=== PATIENT | female | born 1980 | race Two or more races ===

== ENCOUNTER 2025-07-27 22:48 | Inpatient (IN) | payer MEDICAID, OTHER ==
[~2025-07-27] VITALS: Ht 160 cm; Wt 114.7 kg
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
[2025-07-28 01:11] LABS: Alanine Aminotransferase 26 U/L (7-40); Albumin 4.2 g/dL (3.2-4.8); Alkaline Phosphatase 76 U/L (46-116); Anion Gap 9 (5-15); BUN/Creatinine Ratio 17.5 (10.0-20.0); Bilirubin, Total 0.6 mg/dL (0.2-1.0); Blood Urea Nitrogen 11 mg/dL (9-23); Calcium 8.8 mg/dL (8.7-10.4); Carbon Dioxide 24 mmol/L (20-31); Lipase 29 U/L (12-53); Potassium 4.0 mmol/L (3.5-5.1); Sodium 140 mmol/L (136-145); Total Protein 7.1 g/dL (5.7-8.2)
[2025-07-28 01:14] LABS: Hematocrit 40.4 % (36.0-46.0); Hemoglobin 13.4 g/dL (12.2-16.2); Mean Corpuscular Hemoglobin 28.4 pg (28.0-32.0); Mean Corpuscular Volume 85.5 fL (80.0-100.0); Nucleated Red Blood Cells % 0.1 %
[2025-07-28 01:15] LABS: Chloride 107 mmol/L (98-107); Glucose 111 mg/dL (74-106)
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
[2025-07-28] MEDS: ONDANSETRON HCL 4 MG/2 ML VIAL IV ONE (02:13)
[2025-07-28] MEDS: PIPERACILLIN-TAZOB 3.375GM 100 ML IV ONE (02:13)
[2025-07-28] MEDS: SODIUM CHLORIDE 0.9% 1,000 ML IV ONE (02:14)
[2025-07-28] MEDS: fentaNYL CITRATE 100 MCG/2 ML VL IV ONE ×2 (02:15→04:08)
[2025-07-28 02:42] LABS: Urine Protein, UAD Negative (Negative)
[2025-07-28] MEDS: IOHEXOL 300 MG/ML 100ML BOTTLE IJ ONE (02:46)
[2025-07-28 02:58] LABS: Amphetamine Screen, Urine Neg (NEGATIVE); Barbiturate Scree,Urine Neg (NEGATIVE); Benzodiazephine Screen, Urine Neg (NEGATIVE); Cannabinoid Screen, Urine Neg (NEGATIVE); Cocaine Screen, Urine Neg (NEGATIVE); Opiate Scree,Urine Neg (NEGATIVE); Phencyclidine Screen, Urine Neg (NEGATIVE)
--- NOTE | 2025-07-28 03:26 | DVH ---
Exam: CT CT AB PEL WITH IV CON ONLY History: abd pain Comparison Study: Same day CT abdomen/pelvis at 12:26 a.m. Technique: Multidetector spiral CT of the abdomen was performed from lung bases to pubic symphysis. Imaging was performed without IV contrast. Axial, coronal and sagittal multiplanar reformats were obtained from the axial data set by the technologist. Radiation Dose : 1. Abdomen/Pelvis: CTDIvol 26 mGy, DLP 1542 mGy*cm. Findings: See below. IMPRESSION: 1. No new finding, further characterization of previous finding, or significant interval change from 2.4 hours prior. Inflammation associated with a herniated loop of proximal transverse colon within a right-sided spigelian hernia, without associated bowel obstruction. 2. See recent comparison report for other chronic and incidental findings. Radiation optimization: All CT scans at this facility use at least one of these dose optimization techniques: automated exposure control mA and/or kV adjustment per patient size (includes targeted exams where dose is matched to clinical indication) or iterative reconstruction.
[2025-07-28 04:35] VITALS: PULSE 76; RESP 16; O2SAT 98
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
[2025-07-28] MEDS ORDERED: NITROGLYCERIN 0.4 MG SL TAB SL PRN (05:45)
[2025-07-28] MEDS ORDERED: HYDROcodone-ACET 5/325MG TAB PO PRN (05:45)
[2025-07-28] MEDS ORDERED: MORPHINE SULFATE INJ 2 MG/ml SYRG IV PRN (05:45)
[2025-07-28] MEDS ORDERED: ACETAMINOPHEN 325 MG TAB PO PRN (05:45)
[2025-07-28 06:51] LABS: Hematocrit 37.2 % (36.0-46.0); Hemoglobin 12.8 g/dL (12.2-16.2); Mean Corpuscular Hemoglobin 29.3 pg (28.0-32.0); Mean Corpuscular Volume 85.3 fL (80.0-100.0); Nucleated Red Blood Cells % 0.0 %
[2025-07-28] MEDS: SOD CHL 0.45% 1,000 ML IV SCH ×2 (06:54→20:26)
[2025-07-28 07:08] LABS: Alanine Aminotransferase 23 U/L (7-40); Albumin 3.7 g/dL (3.2-4.8); Alkaline Phosphatase 64 U/L (46-116); Anion Gap 8 (5-15); BUN/Creatinine Ratio 15.4 (10.0-20.0); Bilirubin, Total 1.1 mg/dL (0.2-1.0); Carbon Dioxide 24 mmol/L (20-31); Glucose 98 mg/dL (74-106); Potassium 3.8 mmol/L (3.5-5.1); Sodium 140 mmol/L (136-145); Total Protein 6.4 g/dL (5.7-8.2)
[2025-07-28 07:23] LABS: Blood Urea Nitrogen 8 mg/dL (9-23); Calcium 8.1 mg/dL (8.7-10.4); Chloride 108 mmol/L (98-107)
[2025-07-28 07:39] VITALS: PULSE 70; RESP 17; O2SAT 99
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
[2025-07-28] MEDS ORDERED: LIDOCAINE HCL 2% TOP JELLY 5ML TOP ONE (10:38)
[2025-07-28] MEDS ORDERED: LIDOCAINE 2% (LOCAL ANESTH.) PF 5ml SDV ONE ×4 (10:38→15:25)
[2025-07-28] MEDS ORDERED: SUGAMMADEX 200mg/2ml Vial (100MG/ML) IV ONE (10:38)
[2025-07-28] MEDS ORDERED: PROPOFOL 10 MG/ML 20 ML IV ONE (10:38)
[2025-07-28] MEDS ORDERED: ROCURONIUM 10MG/ML 10ML VIAL IV ONE ×2 (10:38→15:32)
[2025-07-28] MEDS ORDERED: ONDANSETRON HCL 4 MG/2 ML VIAL ONE ×2 (10:38→16:01)
[2025-07-28] MEDS ORDERED: LIDOCAINE W/ EPINEPHRINE 1% 20ML VIAL ONE (10:38)
[2025-07-28] MEDS ORDERED: GLYCOPYRROLATE 0.2 MG/ML 1ML VIAL ONE (10:38)
[2025-07-28] MEDS ORDERED: KETAMINE 50mg/ML 1ml syringe ONE (10:40)
[2025-07-28] MEDS ORDERED: fentaNYL CITRATE 100 MCG/2 ML VL ONE (10:40)
[2025-07-28] MEDS: PANTOPRAZOLE 40 MG/10 ML VIAL INJ IV SCH (11:34)
[2025-07-28] MEDS: ACETAMINOPHEN IV 0 ML IV ONE (12:43)
[2025-07-28] MEDS: GABAPENTIN 300 MG CAP ONE (12:43)
[2025-07-28] MEDS: CELECOXIB 100 MG CAP ONE (12:43)
[2025-07-28] MEDS: ACETAMINOPHEN IV 1000 MG/100ML (10MG/ML) IV ONE (12:45)
[2025-07-28] MEDS: GABAPENTIN 300 MG CAP PO ONE (12:45)
[2025-07-28] MEDS: CELECOXIB 100 MG CAP PO ONE (12:45)
--- NOTE | 2025-07-28 12:49 | DVHPN2 ---
Subjective in bed with no pain Reviewed: H&P Changes from previous H/P or p: No Changes Eyes: No Pain, No Vision change, No Conjunctivae inflammation, No Eyelid inflammation, No Other, No Redness ENT: No Ear pain, No Ear discharge, No Nose pain, No Nose discharge, No Nose congestion, No Mouth pain, No Mouth swelling, No Throat pain, No Throat swelling, No Other Cardiovascular: No Chest Pain, No Palpitations, No Orthopnea, No Paroxysmal Noc. Dyspnea, No Edema, No Lt Headedness, No Other Respiratory: No Cough, No Dry, No Shortness of breath, No SOB with excertion, No Wheezing, No Hemoptysis, No Pleuritic Pain, No Sputum, No Other Gastrointestinal: No Nausea, No Vomiting; Abdominal Pain; No Diarrhea, No Constipation, No Melena, No Hematochezia, No Other Genitourinary: No Dysuria, No Frequency, No Incontinence, No Hematuria, No Retention, No Other Musculoskeletal: No other, No neck pain, No shoulder pain, No arm pain, No back pain, No hand pain, No leg pain, No foot pain Skin: No Rash, No Lesions, No Jaundice, No Bruising, No Other Objective Vitals Vital Signs Date Time Temp Pulse Resp B/P (MAP) Pulse Ox O2 Delivery O2 Flow Rate FiO2 07/28/25 12:00 87 12 113/73 (86) 91 07/28/25 07:39 Nasal Cannula* 2 28 07/28/25 07:39 98.0 98.0 General Appearance: Alert, Oriented X3 Cardiovascular: Regular rate, Normal S1, Normal S2 Abdomen: Normal bowel sounds Medications Current Medications Medications Dose Ordered Sig/Jose Route Start Time Stop Time Status Last Admin Dose Admin Ceftriaxone Sodium 50 ml @ 100 mls/hr DAILY@09 IV 07/28/25 09:00 07/28/25 11:34 100 MLS/HR Pantoprazole Sodium 40 mg DAILY IV 07/28/25 10:00 07/28/25 11:34 40 MG Acetaminophen/ Hydrocodone Bitart 1 tab Q4HP PRN PO 07/28/25 05:45 Ondansetron HCl 4 mg Q4HP PRN IV 07/28/25 05:45 Acetaminophen 650 mg Q6HP PRN PO 07/28/25 05:45 Morphine Sulfate 2 mg Q4HPRN PRN IV 07/28/25 05:45 Nitroglycerin 0.4 mg Q5MINP PRN SL 07/28/25 05:45 Morphine Sulfate 2 mg Q30M PRN IV 07/28/25 05:45 Sodium Chloride 1,000 ml @ 140 mls/hr Q7H9M IV 07/28/25 09:15 Laboratory Results Laboratory Tests 07/28/25 06:10 Chemistry Test 07/28/25 00:35 07/28/25 06:10 Albumin 4.2 g/dL (3.2-4.8) 3.7 g/dL (3.2-4.8) Calcium Level 8.8 mg/dL (8.7-10.4) 8.1 mg/dL (8.7-10.4) L Total Protein 7.1 g/dL (5.7-8.2) 6.4 g/dL (5.7-8.2) Lipid panel Test 07/28/25 00:35 Lipase 29 U/L (12-53) LFT Test 07/28/25 00:35 07/28/25 06:10 Alanine Aminotransferase (ALT) 26 U/L (7-40) 23 U/L (7-40) Alkaline Phosphatase 76 U/L (46-116) 64 U/L (46-116) Aspartate Amino Transferase (AST) 16 U/L (13-40) 17 U/L (13-40) Total Bilirubin 0.6 mg/dL (0.2-1.0) 1.1 mg/dL (0.2-1.0) H Urinalysis Test 07/28/25 02:16 Urine Color Light-yellow (Yellow) Urine Clarity Clear (Clear) Urine pH 6.0 (5.0-9.0) Urine Specific [place] 1.030 (1.001-1.035) Urine Protein Negative (Negative) Urine Ketones Negative (Negative) Urine Blood Trace /uL (Negative) H Urine Nitrite Negative (Negative) Urine Bilirubin Negative (Negative) Urine Urobilinogen Normal mg/dL (Negative) Urine Leukocyte Esterase Negative /uL (Negative) Urine RBC 1 /hpf (0 - 4) Urine Microscopic WBC 1 /HPF (0-5) Urine Squamous Epithelial Cells Few /hpf (<5) Urine Bacteria None seen /hpf (None Seen) Urine Mucus Few (None Seen) Urine Glucose Normal mg/dL (Normal) Assessment/Plan Assessment/Plan Strangulated hernia of abdominal wall Leukocytosis, unspecified Acute abdominal pain NPO IVF and IV abx going for laparoscopy today Plan discussed with: Patient Date of Service: Jul 28, 2025 Billing Provider: JAZMIN BENSON MD Common Visit Codes: [id number] INP/OBS CARE(HIGH) AJZMIN BENSON MD Jul 28, 2025 12:49
[2025-07-28] MEDS: BUPIVACAINE 0.5% INJ 50ML VIAL IJ ONE (13:15)
[2025-07-28] MEDS: BUPIVACAINE HCL 50 ML ONE ×2 (13:28→16:57)
[2025-07-28] MEDS ORDERED: SODIUM CHLORIDE LOCK 20 ML ONE (16:02)
[2025-07-28 17:52] VITALS: PULSE 85; RESP 13; O2SAT 100
--- NOTE | 2025-07-28 18:07 | DVHOP2 ---
Operative Report - 2 Report Details Date: 07/28/25 Preop Diagnosis: Right spigelian hernia Postop Diagnosis: Same Surgeon: Rhett Meneses MD Anesthesiologist: Onel Thomson CRNA Anesthesia: General Implant: Bard echo mesh 6 in in diameter Consent: The patient was informed of the risks and benefits of the procedure. These include but are not limited to complications of anesthesia, postoperative infection, incomplete relief of symptoms, recurrence of symptoms, damage to blood vessels, nerves and tendons, deep venous thrombosis, pulmonary embolism and possible need for repeat surgery in the future. Complications: None Estimated Blood Loss: 20ml Findings: Right-sided spigelian hernia containing a loop of colon and omentum. Light omental adhesions to the midline. Indications for Surgery: Incarcerated right-sided spigelian hernia. Name of Procedure Performed Laparoscopic-assisted open ventral hernia repair with mesh and lysis of adhesions Procedure Details Procedure Details: Upon arriving to the operating room the patient was transferred to the operating table placed in the supine position with arms extended. General endotracheal anesthesia was induced. Time-out was observed. Patient was prepped and draped in the standard sterile surgical fashion with chlorhexidine. I then proceeded to make a 5 mm skin level cut at vega's point and subsequently inserted the Veress needle into the peritoneal cavity. I then insufflated the peritoneal cavity to 15 mmHg with toleration. I then placed a 5 mm trocar at this site utilizing [place]. Entry site was surveyed no injuries noted. I then noted that there were thin omental adhesions to the midline of the abdominal cavity. I was able to bluntly dissect a space through those adhesions and gained access to the right abdomen. I then placed 3 additional ports on the right hemiabdomen under direct vision. One 5 mm trocar in the right upper quadrant immediately off of the midline, 1 at midabdomen immediately right of the midline (12 mm port), and 1 5 mm trocar at the mid right lower quadrant. I then proceeded to place a 10 mm 30 degree laparoscope through the 12 mm port site. I immediately noted the hernia site in the lateral right abdomen several cm below the ribs. The hernia contained a loop of colon and a piece of omentum. I then proceeded to place gentle retraction on the loop of herniated colon with a grasper and lysed some of the scar tissue holding it up towards the abdominal wall with scissors. I did this lysing of adhesions circumferentially. Then applying gentle traction with 2 retractors and with outside pressure, I was able to reduce part of the colon and part of the omentum that had herniated through. The loop of colon was extremely stuck in the defect, so at this point I decided to do a cutdown from the outside to be able to free the colon. I then proceeded to make a right flank vertical incision at the skin directly overlying the hernia, this was identified by digital pressure while looking with the laparoscope. The skin incision was carried down to the fascia overlying the external oblique muscle. External oblique fascia was opened, and the muscle fibers were spread, when I did this I immediately noted the bulge of colon through the abdominal wall. I had to spread the muscle fibers all the way to their attachment with the rectus sheath and as far lateral as could possibly do it. I then sharply and with cautery freed the hernia sac from the tissue. I then tried to manually reduced the hernia sac along with the contents back into the peritoneal cavity and it was not going back in. I then had to open the fascial defect 1 more cm. I then opened the hernia sac it contained viable colon and omentum. The omentum was fairly bulky and I decided to transect it by using clamped I cut technique utilizing 0 silk ties. After doing this I was able to reduce the hernia contents entirely into the peritoneal cavity. The fascial defect was 6 cm by 2 cm. I then introduced the Bard echo mesh 6 cm in diameter through the fascial defect and centered it in the defect. I then proceeded to close the fascial defect with interrupted 0 Ethibond sutures. I then irrigated the wound and obtained hemostasis with cautery. I then closed in layers utilizing 2-0 Vicryl to reapproximate the external oblique fascia, 3-0 Vicryl for deep subcu and dermis, closed the skin with sue. I then reinsufflated the peritoneal cavity. I then unrolled the mesh and inflated the scaffold laying the mesh flat against the abdominal wall, it was placed at the center of the fascial defect. I then tacked the outer rim of the mesh circumferentially every cm. I then desufflated the scaffold and removed it from the peritoneal cavity. I then placed in her tacks until the mesh was completely flat against the abdominal wall. I then desufflated the peritoneal cavity and observed the mesh throughout. I then reinsufflated the peritoneal cavity, and mesh was in place perfectly flat against the abdominal wall. Utilizing the Marquise-Hector device I closed the 12 mm port site fascia with 0 Vicryl. Peritoneal cavity was again desufflated entirely. I then closed all port sites with skin sue. 0.25% Marcaine was used as local anesthetic. Patient tolerated the procedure well and was transferred to PACU in stable condition. All counts complete and correct at the end the procedure. Specimen: Omentum Condition Stable Disposition Still a Patient RHETT RADFORD MD Jul 28, 2025 18:07
[2025-07-28] MEDS ORDERED: ONDANSETRON HCL 4 MG/2 ML VIAL IV PRN (18:15)
[2025-07-28] MEDS ORDERED: NALOXONE HCL 0.4 MG/ML VIAL IV PRN (18:15)
[2025-07-28] MEDS ORDERED: fentaNYL CITRATE 100 MCG/2 ML VL IV PRN (18:15)
[2025-07-28] MEDS ORDERED: hydrALAZINE HCL 20 MG/ML VL IV PRN (18:15)
[2025-07-28] MEDS ORDERED: FLUMAZENIL 0.1 MG/ML INJ 10ML MDV IV PRN (18:15)
[2025-07-28] MEDS: HYDROmorphone HCL 2 MG/ML VL/or syr IV PRN (18:45)
[2025-07-28 20:22] VITALS: BP 113/71; PULSE 81; RESP 18; TEMP 99.3; O2SAT 98
[2025-07-28 20:51] VITALS: BP 113/71; PULSE 81; RESP 18; TEMP 99.3; O2SAT 98
[2025-07-28] MEDS: ONDANSETRON HCL 4 MG/2 ML VIAL IV PRN (22:55)
[2025-07-28] MEDS: MORPHINE SULFATE INJ 2 MG/ml SYRG IV PRN (22:56)
[2025-07-29] VITALS (8 sets, daily range): BP systolic 103–120; BP diastolic 60–69; PULSE 69–90; RESP 17–18; TEMP 98–99; O2SAT 92–97
[2025-07-29 07:01] LABS: Hematocrit 35.7 % (36.0-46.0); Hemoglobin 12.1 g/dL (12.2-16.2); Mean Corpuscular Hemoglobin 29.5 pg (28.0-32.0); Mean Corpuscular Volume 87.1 fL (80.0-100.0); Nucleated Red Blood Cells % 0.0 %
[2025-07-29 07:16] LABS: Alanine Aminotransferase 21 U/L (7-40); Albumin 3.3 g/dL (3.2-4.8); Alkaline Phosphatase 53 U/L (46-116); Anion Gap 9 (5-15); BUN/Creatinine Ratio 13.2 (10.0-20.0); Bilirubin, Total 1.2 mg/dL (0.2-1.0); Carbon Dioxide 25 mmol/L (20-31); Chloride 106 mmol/L (98-107); Glucose 105 mg/dL (74-106); Potassium 4.3 mmol/L (3.5-5.1); Sodium 140 mmol/L (136-145); Total Protein 5.7 g/dL (5.7-8.2)
[2025-07-29 07:17] LABS: Blood Urea Nitrogen 7 mg/dL (9-23); Calcium 8.2 mg/dL (8.7-10.4)
--- NOTE | 2025-07-29 13:06 | DVHPN2 ---
Subjective I am assuming the care of the patient from today onwards. Patient is here for strangulated abdominal hernia status post laparoscopic repair. Currently denies any nausea complaining of minimal abdominal pain. Has been passing any flatus or bowel movement yet. Reviewed: H&P Changes from previous H/P or p: No Changes Eyes: No Pain, No Vision change, No Conjunctivae inflammation, No Eyelid inflammation, No Other, No Redness ENT: No Ear pain, No Ear discharge, No Nose pain, No Nose discharge, No Nose congestion, No Mouth pain, No Mouth swelling, No Throat pain, No Throat swelling, No Other Cardiovascular: No Chest Pain, No Palpitations, No Orthopnea, No Paroxysmal Noc. Dyspnea, No Edema, No Lt Headedness, No Other Respiratory: No Cough, No Dry, No Shortness of breath, No SOB with excertion, No Wheezing, No Hemoptysis, No Pleuritic Pain, No Sputum, No Other Gastrointestinal: No Nausea, No Vomiting; Abdominal Pain; No Diarrhea, No Constipation, No Melena, No Hematochezia, No Other Genitourinary: No Dysuria, No Frequency, No Incontinence, No Hematuria, No Retention, No Other Musculoskeletal: No other, No neck pain, No shoulder pain, No arm pain, No back pain, No hand pain, No leg pain, No foot pain Skin: No Rash, No Lesions, No Jaundice, No Bruising, No Other Objective Vitals Vital Signs Date Time Temp Pulse Resp B/P (MAP) Pulse Ox O2 Delivery O2 Flow Rate FiO2 07/29/25 09:00 98.3 73 18 104/60 (75) 94 98.3 07/29/25 08:00 Room Air* 0 21 Intake/Output Intake and Output 07/29/25 07:00 Intake Total 1475 ml Output Total 1600 ml Balance -125 ml Intake Oral 0 ml IV Total 1475 ml Output Urine Total 1600 ml Exam HEENT pupils are reactive Neck is supple CV is S1-S2 regular rate and rhythm Respiratory diminished breath sounds bases GI positive bowel sounds but sluggish, soft nondistended nontender Extremity no edema [employer]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 General Appearance: Alert, Oriented X3 Cardiovascular: Regular rate, Normal S1, Normal S2 Abdomen: Normal bowel sounds Medications Current Medications Medications Dose Ordered Sig/Jose Route Start Time Stop Time Status Last Admin Dose Admin Ceftriaxone Sodium 50 ml @ 100 mls/hr DAILY@09 IV 07/28/25 09:00 07/29/25 08:26 100 MLS/HR Pantoprazole Sodium 40 mg DAILY IV 07/28/25 10:00 07/29/25 08:25 40 MG Acetaminophen/ Hydrocodone Bitart 1 tab Q4HP PRN PO 07/28/25 05:45 Ondansetron HCl 4 mg Q4HP PRN IV 07/28/25 05:45 07/28/25 22:55 4 MG Acetaminophen 650 mg Q6HP PRN PO 07/28/25 05:45 Morphine Sulfate 2 mg Q4HPRN PRN IV 07/28/25 05:45 07/29/25 08:27 2 MG Nitroglycerin 0.4 mg Q5MINP PRN SL 07/28/25 05:45 Morphine Sulfate 2 mg Q30M PRN IV 07/28/25 05:45 Sodium Chloride 1,000 ml @ 140 mls/hr Q7H9M IV 07/28/25 09:15 07/29/25 03:25 140 MLS/HR Oxycodone HCl 10 mg ONCE PRN PO 07/28/25 18:15 Laboratory Results Laboratory Tests 07/29/25 05:22 Chemistry Test 07/29/25 05:22 Albumin 3.3 g/dL (3.2-4.8) Calcium Level 8.2 mg/dL (8.7-10.4) L Total Protein 5.7 g/dL (5.7-8.2) LFT Test 07/29/25 05:22 Alanine Aminotransferase (ALT) 21 U/L (7-40) Alkaline Phosphatase 53 U/L (46-116) Aspartate Amino Transferase (AST) 19 U/L (13-40) Total Bilirubin 1.2 mg/dL (0.2-1.0) H Urinalysis Test 07/28/25 02:16 Urine Color Light-yellow (Yellow) Urine Clarity Clear (Clear) Urine pH 6.0 (5.0-9.0) Urine Specific [place] 1.030 (1.001-1.035) Urine Protein Negative (Negative) Urine Ketones Negative (Negative) Urine Blood Trace /uL (Negative) H Urine Nitrite Negative (Negative) Urine Bilirubin Negative (Negative) Urine Urobilinogen Normal mg/dL (Negative) Urine Leukocyte Esterase Negative /uL (Negative) Urine RBC 1 /hpf (0 - 4) Urine Microscopic WBC 1 /HPF (0-5) Urine Squamous Epithelial Cells Few /hpf (<5) Urine Bacteria None seen /hpf (None Seen) Urine Mucus Few (None Seen) Urine Glucose Normal mg/dL (Normal) Assessment/Plan Assessment/Plan 45-year-old female with a known history of previous abdominal hernia is here for strangulated abdominal hernia. 1. Strangulated spigelian abdominal hernia status post laparoscopic repair 2. Leukocytosis likely reactive 3. Morbid obesity classIII -start clear liquid diet if okay with General surgery, encourage ambulation, DVT GI prophylaxis. Plan discussed with: Patient My Orders Orders - SHIVA HOLLY MD Procedure Category Date Status Time Discontinue Patel VASILE 07/29/25 In Process Catheter 12:23 Problem List: (1) Strangulated hernia of abdominal wall (2) Acute abdominal pain (3) Leukocytosis, unspecified Date of Service: Jul 29, 2025 Billing Provider: SHIVA HOLLY MD Common Visit Codes: [id number] INP/OBS CARE(HIGH) SHIVA HOLLY MD Jul 29, 2025 13:06
--- NOTE | 2025-07-29 14:33 | DVHPN2 ---
Progress Note - Surgical Date Seen: Jul 29, 2025 Post op day Post op day: 1 Subjective Patient reports: Feels better (Pain that brought her to the hospital gone, now having postsurgical pain but manageable with pain meds, no nausea, no vomiting, feeling hungry, afebrile and with vitals stable. No bowel movement or flatus yet) Review of Systems: Deferred Objective Vital signs Vital Sign Date Time Temp Pulse Resp B/P (MAP) Pulse Ox O2 Delivery O2 Flow Rate FiO2 07/29/25 13:15 83 17 116/66 07/29/25 13:00 98.0 93 98.0 07/29/25 08:00 Room Air* 0 21 Total Intake and Output 07/28/25 07/28/25 07/29/25 15:00 23:00 07:00 Intake Total 525 ml 950 ml Output Total 1600 ml Balance 525 ml -650 ml Medications Current Medications Medications Dose Ordered Sig/Jose Route Start Time Stop Time Status Last Admin Dose Admin Ceftriaxone Sodium 50 ml @ 100 mls/hr DAILY@09 IV 07/28/25 09:00 07/29/25 08:26 100 MLS/HR Pantoprazole Sodium 40 mg DAILY IV 07/28/25 10:00 07/29/25 08:25 40 MG Acetaminophen/ Hydrocodone Bitart 1 tab Q4HP PRN PO 07/28/25 05:45 Ondansetron HCl 4 mg Q4HP PRN IV 07/28/25 05:45 07/28/25 22:55 4 MG Acetaminophen 650 mg Q6HP PRN PO 07/28/25 05:45 Morphine Sulfate 2 mg Q4HPRN PRN IV 07/28/25 05:45 07/29/25 13:15 2 MG Nitroglycerin 0.4 mg Q5MINP PRN SL 07/28/25 05:45 Morphine Sulfate 2 mg Q30M PRN IV 07/28/25 05:45 Sodium Chloride 1,000 ml @ 140 mls/hr Q7H9M IV 07/28/25 09:15 07/29/25 03:25 140 MLS/HR Oxycodone HCl 10 mg ONCE PRN PO 07/28/25 18:15 Laboratory Laboratory Tests 07/29/25 05:22 Test 07/29/25 05:22 Range/Units Serum Glucose 105 74-106 mg/dL Examination: GENERAL:Normal, HEENT:Normal, LUNGS:Normal (Nonlabored breathing with symmetric expansion), ABDOMEN:Normal (Nondistended, soft, depressible, appropriate tenderness, incision sites with overlying dressings) Labs and/or images reviewed: Labs reviewed by me (Leukocytosis to 13 from 8.6 likely reactive, hemoglobin stable at 12) Problem List/Assessment/Plan Problems: (1) Incarcerated ventral hernia Assessment and Plan Mrs. Alonso is a 45-year-old female who presented with a chronically incarcerated right-sided spigelian hernia. She is currently postop day 1 from open, laparoscopic assisted ventral hernia repair with mesh. Patient feeling better today although not has poor surgical pain. Patient is feeling hungry, we will start her on a clear liquid diet. 1. Clear liquid diet 2. Out of bed and ambulate 3. A.m. labs (ordered) 4. Pain and nausea control My Orders My Orders Orders - OSCAR RADFORD MD Procedure Category Date Status Time Clear Liq Diet DIET 07/29/25 Transmitted Lunch Plan discussed with Plan discussed with: Patient Visit Coding Surgery Date of Service if different f: Jul 29, 2025 Billing Provider: OSCAR RADFORD MD Surgery Visit Codes: [id number] INP/OBS CARE(HIGH) OSCAR RADFORD MD Jul 29, 2025 14:33
[2025-07-29] MEDS: ACETAMINOPHEN 325 MG TAB PO SCH (14:44)
--- NOTE | 2025-07-29 14:46 | MEDREC ---
[facility] ASP Intervention Section I [facility] ASP Intervention: Review courses of therapy (PLEASE CONSIDER ADDING METRONIDAZOLE FOR ANAEROBIC COVERAGE) FLACO FOURNIER PHARMACIST Jul 29, 2025 14:46
[2025-07-29] MEDS: HYDROcodone-ACET 5/325MG TAB PO PRN (16:01)
[2025-07-29] MEDS: KETOROLAC TROMETH 30 MG/ML 1ML VIAL IV SCH (21:01)
[2025-07-30] VITALS (11 sets, daily range): BP systolic 110–130; BP diastolic 63–73; PULSE 73–98; RESP 16–19; TEMP 97.9–98.5; O2SAT 92–100
[2025-07-30 06:45] LABS: Hematocrit 33.0 % (36.0-46.0); Hemoglobin 11.4 g/dL (12.2-16.2); Mean Corpuscular Hemoglobin 29.7 pg (28.0-32.0); Mean Corpuscular Volume 86.0 fL (80.0-100.0); Nucleated Red Blood Cells % 0.0 %
[2025-07-30 06:57] LABS: Chloride 105 mmol/L (98-107); Potassium 3.5 mmol/L (3.5-5.1); Sodium 141 mmol/L (136-145)
[2025-07-30 06:58] LABS: Anion Gap 9 (5-15); Calcium 8.1 mg/dL (8.7-10.4); Carbon Dioxide 27 mmol/L (20-31)
[2025-07-30 07:03] LABS: BUN/Creatinine Ratio 12.5 (10.0-20.0); Blood Urea Nitrogen 7 mg/dL (9-23); Glucose 82 mg/dL (74-106); Magnesium 1.9 mg/dL (1.6-2.6)
[2025-07-30] MEDS: HYDROcodone-ACET 10/325MG TAB PO PRN (09:40)
[2025-07-30] MEDS ORDERED: MORPHINE SULFATE 4 MG/ML SYR/VIAL IV PRN (11:45)
--- NOTE | 2025-07-30 11:47 | DVHPN2 ---
Progress Note - Surgical Date Seen: Jul 30, 2025 Post op day Post op day: 2 Subjective Patient reports: No new complaints (Still having pain especially around the right flank site, afebrile with vital stable, passing gas but no bowel movement) Review of Systems: Deferred Objective Vital signs Vital Sign Date Time Temp Pulse Resp B/P (MAP) Pulse Ox O2 Delivery O2 Flow Rate FiO2 07/30/25 09:00 98.3 81 18 126/73 (90) 94 98.3 07/30/25 08:00 Room Air* 0 21 Total Intake and Output 07/29/25 07/29/25 07/30/25 15:00 23:00 07:00 Intake Total 50 ml 586 ml 1130 ml Output Total 860 ml Balance 50 ml -274 ml 1130 ml Medications Current Medications Medications Dose Ordered Sig/Jose Route Start Time Stop Time Status Last Admin Dose Admin Ceftriaxone Sodium 50 ml @ 100 mls/hr DAILY@09 IV 07/28/25 09:00 07/30/25 09:39 100 MLS/HR Pantoprazole Sodium 40 mg DAILY IV 07/28/25 10:00 07/30/25 09:39 40 MG Acetaminophen/ Hydrocodone Bitart 1 tab Q4HP PRN PO 07/28/25 05:45 Cancel Ondansetron HCl 4 mg Q4HP PRN IV 07/28/25 05:45 07/28/25 22:55 4 MG Morphine Sulfate 2 mg Q4HPRN PRN IV 07/28/25 05:45 Hold 07/29/25 13:15 2 MG Nitroglycerin 0.4 mg Q5MINP PRN SL 07/28/25 05:45 Morphine Sulfate 2 mg Q30M PRN IV 07/28/25 05:45 Sodium Chloride 1,000 ml @ 140 mls/hr Q7H9M IV 07/28/25 09:15 07/30/25 06:07 140 MLS/HR Acetaminophen 650 mg Q6HR PO 07/29/25 14:45 07/30/25 06:07 650 MG Acetaminophen/ Hydrocodone Bitart 1 tab Q4HPRN PRN PO 07/29/25 14:45 07/29/25 16:01 1 TAB Acetaminophen/ Hydrocodone Bitart 1 tab Q4HP PRN PO 07/29/25 14:45 07/30/25 09:40 1 TAB Ketorolac Tromethamine 15 mg Q8HR IV 07/29/25 22:00 08/03/25 21:59 07/30/25 06:06 15 MG Acetylcysteine 100 mg Q6HR NEB 07/30/25 12:00 UNV Docusate Sodium 100 mg BID PO 07/30/25 22:00 UNV Morphine Sulfate 4 mg Q6HR PRN IV 07/30/25 11:45 UNV Laboratory Laboratory Tests 07/30/25 05:58 Test 07/30/25 05:58 Range/Units Serum Glucose 82 74-106 mg/dL Examination: GENERAL:Normal (AAO x3), LUNGS:Normal (Nonlabored breathing with symmetric expansion), ABDOMEN:Normal (Large pannus, incision sites with sue in place and without surrounding signs of infection, soft, depressible, appropriate tenderness) Labs and/or images reviewed: Labs reviewed by me (Within normal limits) Problem List/Assessment/Plan Assessment and Plan Mrs. Alonso is a 45-year-old female who presented with a chronically incarcerated right-sided spigelian hernia. She is currently postop day 2 from open, laparoscopic assisted ventral hernia repair with mesh. Interval: Patient having pain especially around the right flank incision, this is to be expected fascia was repaired at this site, +has an underlying mesh. Despite patient needs to get up out of bed and ambulate. Having some cough we will add Mucomyst. Labs and vitals are within normal limits. 1. Full liquid Diet 2. Out of bed and ambulate 3. A.m. labs (ordered) 4. Pain and nausea control 5. Colace 100 mg b.i.d. 6. Morphine added for breakthrough pain 7. Mucomyst every 6 hours My Orders My Orders Orders - OSCAR RADFORD MD Procedure Category Date Status Time Clear Liq Diet DIET 07/29/25 Transmitted Lunch Acetaminophen Tablet PHA 07/29/25 In Process (Tylenol Tablet) 14:45 Hydrocodone-Acet PHA 07/29/25 In Process 5/325mg Tab ([place] 14:45 Hydrocodone-Acet PHA 07/29/25 In Process 10/325mg Tab ([place] 14:45 Ketorolac Injection PHA 07/29/25 In Process (Toradol Injection) 22:00 Acetylcysteine PHA 07/30/25 Logged Inhalation 10% 12:00 Docusate Sodium PHA 07/30/25 Logged Capsule (Colace 22:00 Morphine Sulfate PHA 07/30/25 Logged Injection 11:45 Complete Blood Count LAB 07/31/25 Verified 04:00 Basic Metabolic Panel LAB 07/31/25 Verified 04:00 Phosphorus LAB 07/31/25 Verified 04:00 Magnesium LAB 07/31/25 Verified 04:00 Plan discussed with Plan discussed with: Patient Visit Coding Surgery Date of Service if different f: Jul 30, 2025 Billing Provider: OSCAR RADFORD MD Surgery Visit Codes: [id number] INP/OBS CARE(HIGH) OSCAR RADFORD MD Jul 30, 2025 11:47
[2025-07-30] MEDS: ALBUTEROL SULF 2.5 MG/0.5ML(0.5%) NEB SOLN NEB SCH (12:09)
[2025-07-30] MEDS: ACETYLCYSTEINE 10 %(100MG/ML) SOL 4ML NEB SCH (12:10)
--- NOTE | 2025-07-30 13:33 | DVHPN2 ---
Subjective Patient is here for strangulated abdominal hernia status post laparoscopic repair. Currently denies any nausea complaining of minimal abdominal pain. Patient's has been passing flatus. Reviewed: H&P Changes from previous H/P or p: No Changes Eyes: No Pain, No Vision change, No Conjunctivae inflammation, No Eyelid inflammation, No Other, No Redness ENT: No Ear pain, No Ear discharge, No Nose pain, No Nose discharge, No Nose congestion, No Mouth pain, No Mouth swelling, No Throat pain, No Throat swelling, No Other Cardiovascular: No Chest Pain, No Palpitations, No Orthopnea, No Paroxysmal Noc. Dyspnea, No Edema, No Lt Headedness, No Other Respiratory: No Cough, No Dry, No Shortness of breath, No SOB with excertion, No Wheezing, No Hemoptysis, No Pleuritic Pain, No Sputum, No Other Gastrointestinal: No Nausea, No Vomiting; Abdominal Pain; No Diarrhea, No Constipation, No Melena, No Hematochezia, No Other Genitourinary: No Dysuria, No Frequency, No Incontinence, No Hematuria, No Retention, No Other Musculoskeletal: No other, No neck pain, No shoulder pain, No arm pain, No back pain, No hand pain, No leg pain, No foot pain Skin: No Rash, No Lesions, No Jaundice, No Bruising, No Other Objective Vitals Vital Signs Date Time Temp Pulse Resp B/P (MAP) Pulse Ox O2 Delivery O2 Flow Rate FiO2 07/30/25 11:53 98.3 81 18 126/73 94 0.0 21 98.3 07/30/25 08:00 Room Air* Intake/Output Intake and Output 07/30/25 07:00 Intake Total 1766 ml Output Total 860 ml Balance 906 ml Intake Oral 786 ml IV Total 980 ml Output Urine Total 860 ml # Voids 2 Exam HEENT pupils are reactive Neck is supple CV is S1-S2 regular rate and rhythm Respiratory diminished breath sounds bases GI positive bowel sounds but sluggish, soft nondistended nontender Extremity no edema [employer] no motor deficit General Appearance: Alert, Oriented X3 Cardiovascular: Regular rate, Normal S1, Normal S2 Abdomen: Normal bowel sounds Medications Current Medications Medications Dose Ordered Sig/Jose Route Start Time Stop Time Status Last Admin Dose Admin Ceftriaxone Sodium 50 ml @ 100 mls/hr DAILY@09 IV 07/28/25 09:00 07/30/25 09:39 100 MLS/HR Pantoprazole Sodium 40 mg DAILY IV 07/28/25 10:00 07/30/25 09:39 40 MG Acetaminophen/ Hydrocodone Bitart 1 tab Q4HP PRN PO 07/28/25 05:45 Cancel Ondansetron HCl 4 mg Q4HP PRN IV 07/28/25 05:45 07/28/25 22:55 4 MG Morphine Sulfate 2 mg Q4HPRN PRN IV 07/28/25 05:45 Hold 07/29/25 13:15 2 MG Nitroglycerin 0.4 mg Q5MINP PRN SL 07/28/25 05:45 Morphine Sulfate 2 mg Q30M PRN IV 07/28/25 05:45 Sodium Chloride 1,000 ml @ 140 mls/hr Q7H9M IV 07/28/25 09:15 07/30/25 11:18 140 MLS/HR Acetaminophen 650 mg Q6HR PO 07/29/25 14:45 07/30/25 12:45 650 MG Acetaminophen/ Hydrocodone Bitart 1 tab Q4HPRN PRN PO 07/29/25 14:45 07/29/25 16:01 1 TAB Acetaminophen/ Hydrocodone Bitart 1 tab Q4HP PRN PO 07/29/25 14:45 07/30/25 09:40 1 TAB Ketorolac Tromethamine 15 mg Q8HR IV 07/29/25 22:00 08/03/25 21:59 07/30/25 06:06 15 MG Acetylcysteine 100 mg Q6HR NEB 07/30/25 12:00 07/30/25 12:10 100 MG Docusate Sodium 100 mg BID PO 07/30/25 22:00 Morphine Sulfate 4 mg Q6HR PRN IV 07/30/25 11:45 Albuterol 1.25 mg Q6HR NEB 07/30/25 12:00 07/30/25 12:09 1.25 MG Laboratory Results Laboratory Tests 07/30/25 05:58 Chemistry Test 07/30/25 05:58 Calcium Level 8.1 mg/dL (8.7-10.4) L Magnesium Level 1.9 mg/dL (1.6-2.6) Phosphorus Level 2.3 mg/dL (2.4-5.1) L Urinalysis Test 07/28/25 02:16 Urine Color Light-yellow (Yellow) Urine Clarity Clear (Clear) Urine pH 6.0 (5.0-9.0) Urine Specific [place] 1.030 (1.001-1.035) Urine Protein Negative (Negative) Urine Ketones Negative (Negative) Urine Blood Trace /uL (Negative) H Urine Nitrite Negative (Negative) Urine Bilirubin Negative (Negative) Urine Urobilinogen Normal mg/dL (Negative) Urine Leukocyte Esterase Negative /uL (Negative) Urine RBC 1 /hpf (0 - 4) Urine Microscopic WBC 1 /HPF (0-5) Urine Squamous Epithelial Cells Few /hpf (<5) Urine Bacteria None seen /hpf (None Seen) Urine Mucus Few (None Seen) Urine Glucose Normal mg/dL (Normal) Assessment/Plan Assessment/Plan 45-year-old female with a known history of previous abdominal hernia is here for strangulated abdominal hernia. 1. Strangulated spigelian abdominal hernia status post laparoscopic repair 2. Leukocytosis likely reactive 3. Morbid obesity classIII -liquid diet as tolerated, encourage ambulation, DVT GI prophylaxis. -discharge plan once okay with the general surgery. Plan discussed with: Patient Date of Service: Jul 30, 2025 Billing Provider: SHIVA HOLLY MD Common Visit Codes: [id number] INP/OBS CARE(HIGH) SHIVA HOLLY MD Jul 30, 2025 13:33
[2025-07-30] MEDS ORDERED: PHENYLEPHRINE HCL 10 MG/ML VL IV ONE (19:12)
[2025-07-30] MEDS: DOCUSATE SOD 100 MG CAP PO SCH (21:25)
[2025-07-31] VITALS (18 sets, daily range): BP systolic 108–124; BP diastolic 63–77; PULSE 68–106; RESP 14–20; TEMP 97.7–98.4; O2SAT 92–100
[2025-07-31 05:57] LABS: Hematocrit 35.8 % (36.0-46.0); Hemoglobin 12.4 g/dL (12.2-16.2); Mean Corpuscular Hemoglobin 29.8 pg (28.0-32.0); Mean Corpuscular Volume 86.2 fL (80.0-100.0); Nucleated Red Blood Cells % 0.0 %
[2025-07-31 06:03] LABS: Anion Gap 9 (5-15); Carbon Dioxide 26 mmol/L (20-31); Chloride 106 mmol/L (98-107); Potassium 3.6 mmol/L (3.5-5.1); Sodium 141 mmol/L (136-145)
[2025-07-31 06:06] LABS: Calcium 8.3 mg/dL (8.7-10.4)
[2025-07-31 06:09] LABS: Glucose 90 mg/dL (74-106)
[2025-07-31 06:10] LABS: Magnesium 1.9 mg/dL (1.6-2.6)
[2025-07-31 06:21] LABS: BUN/Creatinine Ratio 11.4 (10.0-20.0); Blood Urea Nitrogen < 5 mg/dL (9-23)
--- NOTE | 2025-07-31 12:27 | DVHPN2 ---
Progress Note - Surgical Date Seen: Jul 31, 2025 Post op day Post op day: 3 Subjective Patient reports: Feels better (Patient is still having pain at surgical site but improving, ambulated several times yesterday and today, states that the breathing treatments are helping with the cough, afebrile with vital stable, no bowel movement yet but passing gas) Review of Systems: Deferred Objective Vital signs Vital Sign Date Time Temp Pulse Resp B/P (MAP) Pulse Ox O2 Delivery O2 Flow Rate FiO2 07/31/25 12:03 77 16 95 07/31/25 09:00 97.7 124/74 (91) 97.7 07/31/25 06:45 Room Air* 0 21 Total Intake and Output 07/30/25 07/30/25 07/31/25 15:00 23:00 07:00 Intake Total 654 ml 1250 ml Balance 654 ml 1250 ml Medications Current Medications Medications Dose Ordered Sig/Jose Route Start Time Stop Time Status Last Admin Dose Admin Ceftriaxone Sodium 50 ml @ 100 mls/hr DAILY@09 IV 07/28/25 09:00 07/31/25 09:30 100 MLS/HR Pantoprazole Sodium 40 mg DAILY IV 07/28/25 10:00 07/31/25 09:30 40 MG Acetaminophen/ Hydrocodone Bitart 1 tab Q4HP PRN PO 07/28/25 05:45 Cancel Ondansetron HCl 4 mg Q4HP PRN IV 07/28/25 05:45 07/28/25 22:55 4 MG Morphine Sulfate 2 mg Q4HPRN PRN IV 07/28/25 05:45 Hold 07/29/25 13:15 2 MG Nitroglycerin 0.4 mg Q5MINP PRN SL 07/28/25 05:45 Morphine Sulfate 2 mg Q30M PRN IV 07/28/25 05:45 Sodium Chloride 1,000 ml @ 140 mls/hr Q7H9M IV 07/28/25 09:15 07/31/25 08:45 140 MLS/HR Acetaminophen 650 mg Q6HR PO 07/29/25 14:45 07/31/25 05:35 650 MG Acetaminophen/ Hydrocodone Bitart 1 tab Q4HPRN PRN PO 07/29/25 14:45 07/31/25 10:20 1 TAB Acetaminophen/ Hydrocodone Bitart 1 tab Q4HP PRN PO 07/29/25 14:45 07/30/25 09:40 1 TAB Ketorolac Tromethamine 15 mg Q8HR IV 07/29/25 22:00 08/03/25 21:59 07/31/25 05:36 15 MG Acetylcysteine 100 mg Q6HR NEB 07/30/25 12:00 07/31/25 12:03 100 MG Docusate Sodium 100 mg BID PO 07/30/25 22:00 07/31/25 09:30 100 MG Morphine Sulfate 4 mg Q6HR PRN IV 07/30/25 11:45 Albuterol 1.25 mg Q6HR NEB 07/30/25 12:00 07/31/25 12:03 1.25 MG Laboratory Laboratory Tests 07/31/25 05:26 Test 07/31/25 05:26 Range/Units Serum Glucose 90 74-106 mg/dL Examination: GENERAL:Normal (A A0 x 3), LUNGS:Normal (Nonlabored breathing with symmetric expansion), ABDOMEN:Abnormal (Nondistended, midline scar well healed, laparoscopic scars with sue in place and without surrounding signs of infection, right flank incision with sue in place and without surrounding signs of infection some ecchymosis surrounding the right flank incision, appropriate tenderness, soft, depressible, no rebound, no guarding) Labs and/or images reviewed: Labs reviewed by me (Labs within normal limits) Problem List/Assessment/Plan Assessment and Plan Mrs. Alonso is a 45-year-old female who presented with a chronically incarcerated right-sided spigelian hernia. She is currently postop day 2 from open, laparoscopic assisted ventral hernia repair with mesh. Interval: Patient is still having postsurgical pain, although improving she has been able to ambulate yesterday and today. She is on breathing treatments because of a cough, has improved with the breathing treatments. Tolerated full liquid diet yesterday with a advance diet to regular. Patient is to have a bowel movement prior to getting discharged and pain has to be better tolerated 1. Regular diet 2. Out of bed and ambulate 3. A.m. labs (ordered) 4. Pain and nausea control 5. Colace 100 mg b.i.d. 6. Morphine added for breakthrough pain 7. Mucomyst every 6 hours 8. Incentive spirometry 9. MiraLax daily My Orders My Orders Orders - OSCAR RADFORD MD Procedure Category Date Status Time Regular Diet DIET 07/31/25 Verified Lunch Complete Blood Count LAB 08/01/25 Verified 04:00 Basic Metabolic Panel LAB 08/01/25 Verified 04:00 Phosphorus LAB 08/01/25 Verified 04:00 Magnesium LAB 08/01/25 Verified 04:00 Polyethylene Glycol PHA 08/01/25 Verified 17g Powder (Miralax 10:00 Plan discussed with Plan discussed with: Patient Visit Coding Surgery Date of Service if different f: Jul 31, 2025 Billing Provider: OSCAR RADFORD MD Surgery Visit Codes: [id number] INP/OBS CARE(HIGH) OSCAR RADFORD MD Jul 31, 2025 12:27
[2025-07-31] MEDS: ENOXAPARIN SOD 40 MG/0.4 ML SYRINGE SC SCH (16:59)
[2025-08-01] VITALS (16 sets, daily range): BP systolic 119–156; BP diastolic 66–107; PULSE 70–103; RESP 16–20; TEMP 97.1–98.6; O2SAT 94–100
[2025-08-01 05:30] LABS: Hematocrit 34.4 % (36.0-46.0); Hemoglobin 11.7 g/dL (12.2-16.2); Mean Corpuscular Hemoglobin 29.2 pg (28.0-32.0); Mean Corpuscular Volume 85.6 fL (80.0-100.0); Nucleated Red Blood Cells % 0.0 %
[2025-08-01 05:38] LABS: Chloride 106 mmol/L (98-107); Sodium 143 mmol/L (136-145)
[2025-08-01 05:39] LABS: Anion Gap 11 (5-15); Carbon Dioxide 26 mmol/L (20-31)
[2025-08-01 05:44] LABS: BUN/Creatinine Ratio 14.0 (10.0-20.0)
[2025-08-01 05:45] LABS: Magnesium 1.8 mg/dL (1.6-2.6)
[2025-08-01 05:47] LABS: Blood Urea Nitrogen 6 mg/dL (9-23); Calcium 8.6 mg/dL (8.7-10.4); Glucose 111 mg/dL (74-106); Potassium 3.4 mmol/L (3.5-5.1)
[2025-08-01] MEDS: POLYETHYLENE GLYCOL 17 GM PWDR PO SCH (09:26)
--- NOTE | 2025-08-01 12:37 | DVHPN2 ---
Progress Note - Surgical Date Seen: Aug 01, 2025 Post op day Post op day: 4 Subjective Patient reports: Feels better (Patient feels better this morning, pain better controlled, afebrile with vital stable, passing flatus but no bowel movement, tolerating regular diet.) Review of Systems: Deferred Objective Vital signs Vital Sign Date Time Temp Pulse Resp B/P (MAP) Pulse Ox O2 Delivery O2 Flow Rate FiO2 08/01/25 12:25 98.5 79 19 132/66 (88) 96 98.5 08/01/25 08:00 Room Air* 0 21 Total Intake and Output 07/31/25 07/31/25 08/01/25 15:00 23:00 07:00 Intake Total 580 ml 450 ml Balance 580 ml 450 ml Medications Current Medications Medications Dose Ordered Sig/Jose Route Start Time Stop Time Status Last Admin Dose Admin Ceftriaxone Sodium 50 ml @ 100 mls/hr DAILY@09 IV 07/28/25 09:00 08/01/25 09:28 100 MLS/HR Pantoprazole Sodium 40 mg DAILY IV 07/28/25 10:00 08/01/25 09:26 40 MG Acetaminophen/ Hydrocodone Bitart 1 tab Q4HP PRN PO 07/28/25 05:45 Cancel Ondansetron HCl 4 mg Q4HP PRN IV 07/28/25 05:45 07/28/25 22:55 4 MG Morphine Sulfate 2 mg Q4HPRN PRN IV 07/28/25 05:45 Hold 07/29/25 13:15 2 MG Nitroglycerin 0.4 mg Q5MINP PRN SL 07/28/25 05:45 Morphine Sulfate 2 mg Q30M PRN IV 07/28/25 05:45 Sodium Chloride 1,000 ml @ 140 mls/hr Q7H9M IV 07/28/25 09:15 07/31/25 08:45 140 MLS/HR Acetaminophen 650 mg Q6HR PO 07/29/25 14:45 08/01/25 05:17 650 MG Acetaminophen/ Hydrocodone Bitart 1 tab Q4HPRN PRN PO 07/29/25 14:45 07/31/25 10:20 1 TAB Acetaminophen/ Hydrocodone Bitart 1 tab Q4HP PRN PO 07/29/25 14:45 08/01/25 09:28 1 TAB Ketorolac Tromethamine 15 mg Q8HR IV 07/29/25 22:00 08/03/25 21:59 08/01/25 05:17 15 MG Acetylcysteine 100 mg Q6HR NEB 07/30/25 12:00 08/01/25 00:28 100 MG Docusate Sodium 100 mg BID PO 07/30/25 22:00 08/01/25 09:27 100 MG Morphine Sulfate 4 mg Q6HR PRN IV 07/30/25 11:45 Albuterol 1.25 mg Q6HR NEB 07/30/25 12:00 08/01/25 00:28 1.25 MG Polyethylene Glycol 17 gm DAILY PO 08/01/25 10:00 08/01/25 09:26 17 GM Enoxaparin Sodium 40 mg DAILY SC 07/31/25 16:45 08/01/25 09:27 40 MG Laboratory Laboratory Tests 08/01/25 05:06 Test 08/01/25 05:06 Range/Units Serum Glucose 111 H 74-106 mg/dL Examination: GENERAL:Normal (Alert awake and oriented x3), LUNGS:Normal (Nonlabored breathing with symmetric expansion), ABDOMEN:Normal (Nondistended, midline scar healed, laparoscopic port sites and right flank incision with sue and no surrounding signs of infection, soft and depressible, appropriately tender, some ecchymosis around right flank incision) Labs and/or images reviewed: Labs reviewed by me (No leukocytosis) Problem List/Assessment/Plan Assessment and Plan Mrs. Alonso is a 45-year-old female who presented with a chronically incarcerated right-sided spigelian hernia. She is currently postop day 4 from open, laparoscopic assisted ventral hernia repair with mesh. Interval: Postsurgical pain better controlled today, patient is ambulating, tolerating regular diet, passing flatus, but still no bowel movement. Patient is have a bowel movement prior to discharge. 1. Regular diet 2. Out of bed and ambulate 3. A.m. labs 4. Pain and nausea control 5. Colace 100 mg b.i.d. 6. Morphine added for breakthrough pain 7. Mucomyst every 6 hours 8. Incentive spirometry 9. MiraLax daily Plan discussed with Plan discussed with: Patient Visit Coding Surgery Date of Service if different f: Aug 01, 2025 Billing Provider: OSCAR RADFORD MD Surgery Visit Codes: [id number] INP/OBS CARE(HIGH) OSCAR RADFORD MD Aug 01, 2025 12:37
--- NOTE | 2025-08-01 15:40 | DVHPN2 ---
Subjective Patient is here for strangulated abdominal hernia status post laparoscopic repair. Currently denies any nausea complaining of minimal abdominal pain. Patient's has been passing flatus. Reviewed: H&P Changes from previous H/P or p: No Changes Eyes: No Pain, No Vision change, No Conjunctivae inflammation, No Eyelid inflammation, No Other, No Redness ENT: No Ear pain, No Ear discharge, No Nose pain, No Nose discharge, No Nose congestion, No Mouth pain, No Mouth swelling, No Throat pain, No Throat swelling, No Other Cardiovascular: No Chest Pain, No Palpitations, No Orthopnea, No Paroxysmal Noc. Dyspnea, No Edema, No Lt Headedness, No Other Respiratory: No Cough, No Dry, No Shortness of breath, No SOB with excertion, No Wheezing, No Hemoptysis, No Pleuritic Pain, No Sputum, No Other Gastrointestinal: No Nausea, No Vomiting; Abdominal Pain; No Diarrhea, No Constipation, No Melena, No Hematochezia, No Other Genitourinary: No Dysuria, No Frequency, No Incontinence, No Hematuria, No Retention, No Other Musculoskeletal: No other, No neck pain, No shoulder pain, No arm pain, No back pain, No hand pain, No leg pain, No foot pain Skin: No Rash, No Lesions, No Jaundice, No Bruising, No Other Objective Vitals Vital Signs Date Time Temp Pulse Resp B/P (MAP) Pulse Ox O2 Delivery O2 Flow Rate FiO2 08/01/25 12:50 79 18 100 08/01/25 12:44 Room Air 0.0 08/01/25 12:44 21 08/01/25 12:25 98.5 132/66 (88) 98.5 Intake/Output Intake and Output 08/01/25 07:00 Intake Total 1030 ml Balance 1030 ml Intake Oral 1030 ml # Voids 4 Exam HEENT pupils are reactive Neck is supple CV is S1-S2 regular rate and rhythm Respiratory diminished breath sounds bases GI positive bowel sounds but sluggish, soft nondistended nontender Extremity no edema 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 General Appearance: Alert, Oriented X3 Cardiovascular: Regular rate, Normal S1, Normal S2 Abdomen: Normal bowel sounds Medications Current Medications Medications Dose Ordered Sig/Jose Route Start Time Stop Time Status Last Admin Dose Admin Ceftriaxone Sodium 50 ml @ 100 mls/hr DAILY@09 IV 07/28/25 09:00 08/01/25 09:28 100 MLS/HR Pantoprazole Sodium 40 mg DAILY IV 07/28/25 10:00 08/01/25 09:26 40 MG Acetaminophen/ Hydrocodone Bitart 1 tab Q4HP PRN PO 07/28/25 05:45 Cancel Ondansetron HCl 4 mg Q4HP PRN IV 07/28/25 05:45 07/28/25 22:55 4 MG Morphine Sulfate 2 mg Q4HPRN PRN IV 07/28/25 05:45 Hold 07/29/25 13:15 2 MG Nitroglycerin 0.4 mg Q5MINP PRN SL 07/28/25 05:45 Morphine Sulfate 2 mg Q30M PRN IV 07/28/25 05:45 Sodium Chloride 1,000 ml @ 140 mls/hr Q7H9M IV 07/28/25 09:15 07/31/25 08:45 140 MLS/HR Acetaminophen 650 mg Q6HR PO 07/29/25 14:45 08/01/25 13:51 650 MG Acetaminophen/ Hydrocodone Bitart 1 tab Q4HPRN PRN PO 07/29/25 14:45 07/31/25 10:20 1 TAB Acetaminophen/ Hydrocodone Bitart 1 tab Q4HP PRN PO 07/29/25 14:45 08/01/25 09:28 1 TAB Ketorolac Tromethamine 15 mg Q8HR IV 07/29/25 22:00 08/03/25 21:59 08/01/25 05:17 15 MG Acetylcysteine 100 mg Q6HR NEB 07/30/25 12:00 08/01/25 12:44 100 MG Docusate Sodium 100 mg BID PO 07/30/25 22:00 08/01/25 09:27 100 MG Morphine Sulfate 4 mg Q6HR PRN IV 07/30/25 11:45 Albuterol 1.25 mg Q6HR NEB 07/30/25 12:00 08/01/25 12:44 1.25 MG Polyethylene Glycol 17 gm DAILY PO 08/01/25 10:00 08/01/25 09:26 17 GM Enoxaparin Sodium 40 mg DAILY SC 07/31/25 16:45 08/01/25 09:27 40 MG Laboratory Results Laboratory Tests 08/01/25 05:06 Chemistry Test 08/01/25 05:06 Calcium Level 8.6 mg/dL (8.7-10.4) L Magnesium Level 1.8 mg/dL (1.6-2.6) Phosphorus Level 3.8 mg/dL (2.4-5.1) Urinalysis Test 07/28/25 02:16 Urine Color Light-yellow (Yellow) Urine Clarity Clear (Clear) Urine pH 6.0 (5.0-9.0) Urine Specific [place] 1.030 (1.001-1.035) Urine Protein Negative (Negative) Urine Ketones Negative (Negative) Urine Blood Trace /uL (Negative) H Urine Nitrite Negative (Negative) Urine Bilirubin Negative (Negative) Urine Urobilinogen Normal mg/dL (Negative) Urine Leukocyte Esterase Negative /uL (Negative) Urine RBC 1 /hpf (0 - 4) Urine Microscopic WBC 1 /HPF (0-5) Urine Squamous Epithelial Cells Few /hpf (<5) Urine Bacteria None seen /hpf (None Seen) Urine Mucus Few (None Seen) Urine Glucose Normal mg/dL (Normal) Assessment/Plan Assessment/Plan 45-year-old female with a known history of previous abdominal hernia is here for strangulated abdominal hernia. 1. Strangulated spigelian abdominal hernia status post laparoscopic repair 2. Leukocytosis likely reactive 3. Morbid obesity classIII -liquid diet as tolerated, encourage ambulation, DVT GI prophylaxis. -discharge plan once okay with the general surgery. Plan discussed with: Patient My Orders Orders - SHIVA HOLLY MD Procedure Category Date Status Time Enoxaparin Sodium PHA 07/31/25 In Process (Lovenox) 16:45 Date of Service: Aug 01, 2025 Billing Provider: SHIVA HOLLY MD Common Visit Codes: [id number] INP/OBS CARE(HIGH) SHIVA HOLLY MD Aug 01, 2025 15:40
[2025-08-02] VITALS (10 sets, daily range): BP systolic 119–136; BP diastolic 72–81; PULSE 67–92; RESP 14–20; TEMP 97.5–98.1; O2SAT 95–100
--- NOTE | 2025-08-02 10:28 | DVHPN2 ---
Progress Note - Surgical Date Seen: Aug 02, 2025 Post op day Post op day: 5 Subjective Patient reports: Feels better (Patient feels much better this morning, able to move around more, tolerating regular diet, had a bowel movement, she is afebrile with vital stable.) Review of Systems: Deferred Objective Vital signs Vital Sign Date Time Temp Pulse Resp B/P (MAP) Pulse Ox O2 Delivery O2 Flow Rate FiO2 08/02/25 09:00 98.0 80 14 119/72 (88) 96 98.0 08/02/25 07:50 Room Air 0.0 08/02/25 07:50 21 Total Intake and Output 08/01/25 08/01/25 08/02/25 14:59 22:59 06:59 Intake Total 1000 ml 1600 ml Balance 1000 ml 1600 ml Medications Current Medications Medications Dose Ordered Sig/Jose Route Start Time Stop Time Status Last Admin Dose Admin Ceftriaxone Sodium 50 ml @ 100 mls/hr DAILY@09 IV 07/28/25 09:00 08/01/25 09:28 100 MLS/HR Pantoprazole Sodium 40 mg DAILY IV 07/28/25 10:00 08/01/25 09:26 40 MG Acetaminophen/ Hydrocodone Bitart 1 tab Q4HP PRN PO 07/28/25 05:45 Cancel Ondansetron HCl 4 mg Q4HP PRN IV 07/28/25 05:45 07/28/25 22:55 4 MG Morphine Sulfate 2 mg Q4HPRN PRN IV 07/28/25 05:45 Hold 07/29/25 13:15 2 MG Nitroglycerin 0.4 mg Q5MINP PRN SL 07/28/25 05:45 Morphine Sulfate 2 mg Q30M PRN IV 07/28/25 05:45 Sodium Chloride 1,000 ml @ 140 mls/hr Q7H9M IV 07/28/25 09:15 07/31/25 08:45 140 MLS/HR Acetaminophen 650 mg Q6HR PO 07/29/25 14:45 08/01/25 18:10 650 MG Acetaminophen/ Hydrocodone Bitart 1 tab Q4HPRN PRN PO 07/29/25 14:45 07/31/25 10:20 1 TAB Acetaminophen/ Hydrocodone Bitart 1 tab Q4HP PRN PO 07/29/25 14:45 08/01/25 20:59 1 TAB Ketorolac Tromethamine 15 mg Q8HR IV 07/29/25 22:00 08/03/25 21:59 08/02/25 05:42 15 MG Acetylcysteine 100 mg Q6HR NEB 07/30/25 12:00 08/02/25 07:50 100 MG Docusate Sodium 100 mg BID PO 07/30/25 22:00 08/01/25 21:41 100 MG Morphine Sulfate 4 mg Q6HR PRN IV 07/30/25 11:45 Albuterol 1.25 mg Q6HR NEB 07/30/25 12:00 08/02/25 07:50 1.25 MG Polyethylene Glycol 17 gm DAILY PO 08/01/25 10:00 08/01/25 09:26 17 GM Enoxaparin Sodium 40 mg DAILY SC 07/31/25 16:45 08/01/25 09:27 40 MG Laboratory Laboratory Tests 08/01/25 05:06 Test 08/01/25 05:06 Range/Units Serum Glucose 111 H 74-106 mg/dL Examination: GENERAL:Normal (A a 0 x 3), LUNGS:Normal (Nonlabored breathing with symmetric expansion), ABDOMEN:Normal (Nondistended, soft, depressible, midline scar healed, laparoscopic and right flank incisions with sue in place and without any surrounding signs of infection, some ecchymosis around the right flank incision, appropriate tenderness. No rebound no guarding) Problem List/Assessment/Plan Assessment and Plan Mrs. Alonso is a 45-year-old female who presented with a chronically incarcerated right-sided spigelian hernia. She is currently postop day 5 from open, laparoscopic assisted ventral hernia repair with mesh. Interval: Patient feeling much better today, tolerating regular diet, ambulating, had a bowel movement. Patient is cleared for discharge. 1. Cleared for discharge per surgical standpoint 2. Regular diet 3. No lifting over 10 lb for 8 weeks. 4. May shower, soap and water okay to run over incisions. No swimming and/or bathing. 5. 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 6. Recommend prescribing [place] 5-325 mg 1 tab p.o. every 6 hours p.r.n. severe pain 7. Recommend prescribing MiraLax 1 packet daily PRN constipation 8. No driving while taking narcotics 9. Follow up with Dr. Worthington at [facility] in 2 weeks, please call for appointment. Plan discussed with Plan discussed with: Patient Visit Coding Surgery Date of Service if different f: Aug 02, 2025 Billing Provider: OSCAR RADFORD MD Surgery Visit Codes: [id number] INP/OBS CARE(HIGH) OSCAR RADFORD MD Aug 02, 2025 10:28
[2025-08-02] MEDS ORDERED: POLY335015 PO (15:13)
[2025-08-02] MEDS ORDERED: NALO4SPR2 (15:13)
[2025-08-02] MEDS ORDERED: HYDR-4798 PO (15:13)
--- NOTE | 2025-08-02 15:16 | DVHDS2 ---
Discharge Summary Date of Admission Jul 28, 2025 at 05:35 Date of Discharge: Aug 02, 2025 Labs/Diagnostic Data: Laboratory Results Test 08/01/25 05:06 07/29/25 05:22 07/28/25 09:24 07/28/25 02:16 White Blood Count 6.2 10^3/uL (4.4-10.8) Red Blood Count 4.02 10^6/uL (4.0-5.20) Hemoglobin 11.7 g/dL (12.2-16.2) Hematocrit 34.4 % (36.0-46.0) Mean Corpuscular Volume 85.6 fL (80.0-100.0) Mean Corpuscular Hemoglobin 29.2 pg (28.0-32.0) Mean Corpuscular Hemoglobin Concent 34.1 g/dL (32.0-36.0) Red Cell Distribution Width 14.3 % (11.8-14.3) Platelet Count 377 10^3/uL (140-450) Mean Platelet Volume 7.8 fL (6.9-10.8) Neutrophils (%) (Auto) 63.9 % (37.0-80.0) Lymphocytes (%) (Auto) 23.6 % (10.0-50.0) Monocytes (%) (Auto) 8.2 % (0.0-12.0) Eosinophils (%) (Auto) 3.4 % (0.0-7.0) Basophils (%) (Auto) 0.9 % (0.0-2.0) Neutrophils # (Auto) 4.0 10 ^3/uL (1.6-8.6) Lymphocytes # (Auto) 1.5 10 ^3/uL (0.4-5.4) Monocytes # (Auto) 0.5 10 ^3/uL (0-1.3) Eosinophils # (Auto) 0.2 10 ^3/uL (0-0.8) Basophils # (Auto) 0.1 10 ^3/uL (0-0.2) Nucleated Red Blood Cells 0.0 % Sodium Level 143 mmol/L (136-145) Potassium Level 3.4 mmol/L (3.5-5.1) Chloride Level 106 mmol/L (98-107) Carbon Dioxide Level 26 mmol/L (20-31) Anion Gap 11 (5-15) Blood Urea Nitrogen 6 mg/dL (9-23) Creatinine 0.43 mg/dL (0.550-1.02) Glomerular Filtration Rate Calc 121 mL/min (>90) BUN/Creatinine Ratio 14.0 (10.0-20.0) Serum Glucose 111 mg/dL (74-106) Calcium Level 8.6 mg/dL (8.7-10.4) Phosphorus Level 3.8 mg/dL (2.4-5.1) Magnesium Level 1.8 mg/dL (1.6-2.6) Total Bilirubin 1.2 mg/dL (0.2-1.0) Aspartate Amino Transferase (AST) 19 U/L (13-40) Alanine Aminotransferase (ALT) 21 U/L (7-40) Alkaline Phosphatase 53 U/L (46-116) Total Protein 5.7 g/dL (5.7-8.2) Albumin 3.3 g/dL (3.2-4.8) Beta HCG, Quantitative < 1.5 mIU/mL (1.5-4.2) Urine Color Light-yellow (Yellow) Urine Clarity Clear (Clear) Urine pH 6.0 (5.0-9.0) Urine Specific [place] 1.030 (1.001-1.035) Urine Protein Negative (Negative) Urine Ketones Negative (Negative) Urine Blood Trace /uL (Negative) Urine Nitrite Negative (Negative) Urine Bilirubin Negative (Negative) Urine Urobilinogen Normal mg/dL (Negative) Urine Leukocyte Esterase Negative /uL (Negative) Urine RBC 1 /hpf (0 - 4) Urine Microscopic WBC 1 /HPF (0-5) Urine Squamous Epithelial Cells Few /hpf (<5) Urine Bacteria None seen /hpf (None Seen) Urine Mucus Few (None Seen) Urine Glucose Normal mg/dL (Normal) Urine Opiates Screen Neg (NEGATIVE) Urine Fentanyl Screen Neg (NEGATIVE) Urine Barbiturates Screen Neg (NEGATIVE) Urine Phencyclidine Screen Neg (NEGATIVE) Urine Amphetamines Screen Neg (NEGATIVE) Urine Benzodiazepines Screen Neg (NEGATIVE) Urine Cocaine Screen Neg (NEGATIVE) Urine Cannabinoids Screen Neg (NEGATIVE) Test 07/28/25 00:35 Lactic Acid Level 0.6 mmol/L (0.4-2.0) Lipase 29 U/L (12-53) Other Laboratory Tests 08/01/25 05:06 Brief Hx & Hospital Course: 45-year-old female with a known history of previous abdominal hernia is here for strangulated abdominal hernia. Patient underwent laparoscopic hernia repair. Postoperatively patient did fairly well. Patient is currently tolerating diet. Patient is being discharged under stable condition. Please follow up with the PCP, General surgery in one week. Please return to ER if there is any concern. Condition at Discharge: Stable Final Diagnosis/Problems List 45-year-old female with a known history of previous abdominal hernia is here for strangulated abdominal hernia. 1. Strangulated spigelian abdominal hernia status post laparoscopic repair 2. Leukocytosis likely reactive 3. Morbid obesity classIII Discharge Disposition: Home SNF Discharge Will this Physician continue t: No Discharge Instruct/Medications Diet: Cardiac 2g Na,low cholest Activity: See Comment Follow Up/Referral: Follow up with the PCP in 1-2 weeks Follow up with General surgery in one week Medications: [place], Narcan, MiraLax as prescribed. New Medications: Hydrocodone-Acetaminophen (Hydrocodone Bitartrate/AC 10-325 mg) 1 Tab Tab 1 TAB PO Q6HP PRN, #14 TAB Naloxone HCl (Narcan) 4 Mg/0.1 Ml Spr 4 MG NA LIQUOR MERCHANT, #2 SPRAY Polyethylene Glycol 3350 (Miralax) 17 Gm Pow 17 GM PO DAILY PRN, #14 POW Scheduled Naloxone HCl (Narcan), 4 MG NA [employer]QU[employer]CHANT Scheduled PRN Hydrocodone-Acetaminophen (Hydrocodone Bitartrate/AC 10-325 mg), 1 TAB PO Q6HP PRN Polyethylene Glycol 3350 (Miralax), 17 GM PO DAILY PRN Discharge Statement: "Patient was advised to return to the ER or call 911 if any headaches, dizziness, shortness of breath, chest pain, abdominal pain, bleeding, fevers, or worsening of medical condition. Patient was counseled about treatment plan, medications, possible side effects, patientverbalized understanding. All questions were answered to the best of my ability. This discharge took greater then 30 minutes in planning, reviewing documentation, counseling the patient, and discussing with other team members." ASSESSMENT ASSESSMENT Assessment 45-year-old female with a known history of previous abdominal hernia is here for strangulated abdominal hernia. 1. Strangulated spigelian abdominal hernia status post laparoscopic repair 2. Leukocytosis likely reactive 3. Morbid obesity classIII Date of Service: Aug 02, 2025 Billing Provider: SHIVA HOLLY MD Common Visit Codes: [id number] DISCH DAY >30min SHIVA HOLLY MD Aug 02, 2025 15:16
== END 2025-08-02 16:11 | disposition home or self-care (01) | DRG 227 ==
LOC: ER 22:48 → OVERFLOW 07-28 05:35 → TELE-EAST 07-28 20:15
PROVIDERS: ADMIT Internal Medicine; ATTEND Internal Medicine
PROC: 0WUF4JZ Supplement Abdominal Wall with Synthetic Substitute, Percutaneous Endoscopic Approach (ICD-10-PCS; principal; 2025-07-28 12:57)
DX: K43.6 Other and unspecified ventral hernia with obstruction, without gangrene (principal); R71.0 Precipitous drop in hematocrit; E66.813 Obesity, class 3; D72.829 Elevated white blood cell count, unspecified; K66.0 Peritoneal adhesions (postprocedural) (postinfection); Z68.41 Body mass index [BMI] 40.0-44.9, adult
CPT/HCPCS: 36415; 74176; 74177; 80048; 80053; 80307; 81001; 83605; 83690; 83735; 84100; 84702; 85025; 86850; 86900; 86901; 94640; 96365; 99291; C1713; G0378; J0131; J0169; J0694; J1100; J1885; J2003; J2405; J2470; J2543; J2704; J3490